=== PATIENT | female | born 1990 | race Caucasian/White ===

== ENCOUNTER 2018-11-17 12:18 | Emergency (ER) | payer BC ==
[~2018-11-17] VITALS: Ht 170.2 cm; Wt 84.8 kg
[~2018-11-17 12:18] MED LIST: AMOX500 PO; CYCL10 PO; DIVA500EC; IBUP800 PO; LAMO100 PO; LAMO50 PO; Lotrimin Ultra12 GM TP; MULVITMINE PO; OXYACE5T PO; RXCYCL10 PO; ZONI100
[2018-11-17 13:05] LABS: BASOPHILS ABSOLUTE AUTO 0.04 K/mm3 (0.00-0.23); BASOPHILS PERCENT AUTO 1 % (0-2); EOSINOPHILS ABSOLUTE AUTO 0.06 K/mm3 (0.00-0.68); EOSINOPHILS PERCENT AUTO 1 % (0-6); Hematocrit 40.1 % (33.0-51.0); Hemoglobin 13.6 g/dL (11.5-16.0); IMMATURE GRAN ABSOLUTE AUTO 0.03 K/mm3 (0.00-0.10); IMMATURE GRAN PERCENT AUTO 1 % (0-1); LYMPHOCYTES ABSOLUTE AUTO 2.33 K/mm3 (0.84-5.20); LYMPHOCYTES PERCENT AUTO 36 % (21-46); MONOCYTES ABSOLUTE AUTO 0.46 K/mm3 (0.16-1.47); MONOCYTES PERCENT AUTO 7 % (4-13); Mean Corpuscular HGB 31.6 pg (26.0-34.0); Mean Corpuscular HGB Conc 33.9 g/dL (31.5-36.5); Mean Corpuscular Volume 93 fL (80-100); Mean Platelet Volume 8.7 fL (9.1-12.4); NEUTROPHILS ABSOLUTE AUTO 3.53 K/mm3 (1.96-9.15); NEUTROPHILS PERCENT AUTO 55 % (41-73); Platelet Count 291 K/mm3 (150-400); RDW Coefficient Variation 12.1 % (11.7-14.2); RDW Standard Deviation 41.7 fL (35.1-46.3); Red Blood Cell Count 4.31 M/mm3 (3.80-5.20); White Blood Cell Count 6.45 K/mm3 (4.00-11.30)
[2018-11-17 13:24] LABS: Alanine Aminotransfer (ALT/SGP 28 U/L (12-78); Albumin, Blood 3.7 g/dL (3.4-5.0); Albumin/Globulin Ratio 1.1 (0.8-1.8); Alk Phos 74 U/L (50-136); Anion Gap 5 mmol/L (6-16); Aspartate Aminotrans (AST/SGOT 12 U/L (12-37); Bilirubin, Total 0.3 mg/dL (0.1-1.0); Blood Urea Nitrogen 12 mg/dL (8-24); Bun/Creatinine Ratio 14.8 (12.0-20.0); CO2, Blood 31 mmol/L (21-32); Calcium, Blood 8.5 mg/dL (8.5-10.1); Chloride, Blood 104 mmol/L (98-108); Creatinine, Blood 0.81 mg/dL (0.40-1.00); Globulin, Blood 3.5 g/dL (2.2-4.0); Glomerular Filtration Rate >60 (60-); Glucose, Blood 92 mg/dL (70-99); Potassium, Blood 3.8 mmol/L (3.5-5.5); Sodium, Blood 140 mmol/L (136-145); Total Protein, Blood 7.2 g/dL (6.4-8.2)
== END 2018-11-17 15:10 | disposition home or self-care (01) ==
LOC: ER 12:18
PROVIDERS: Physician Assistant
DX: N92.0 Excessive and frequent menstruation with regular cycle (principal); Z79.899 Other long term (current) drug therapy
CPT/HCPCS: 36415; 76830; 76856; 80053; 81025; 84702; 85025; 99284-25

== ENCOUNTER 2019-02-01 17:08 | Emergency (ER) | payer BC ==
[~2019-02-01] VITALS: Ht 170.2 cm; Wt 81.7 kg
[2019-02-01 18:15] LABS: BASOPHILS ABSOLUTE AUTO 0.04 K/mm3 (0.00-0.23); BASOPHILS PERCENT AUTO 1 % (0-2); EOSINOPHILS ABSOLUTE AUTO 0.05 K/mm3 (0.00-0.68); EOSINOPHILS PERCENT AUTO 1 % (0-6); Hematocrit 39.3 % (33.0-51.0); Hemoglobin 13.2 g/dL (11.5-16.0); IMMATURE GRAN ABSOLUTE AUTO 0.02 K/mm3 (0.00-0.10); IMMATURE GRAN PERCENT AUTO 0 % (0-1); LYMPHOCYTES ABSOLUTE AUTO 2.01 K/mm3 (0.84-5.20); LYMPHOCYTES PERCENT AUTO 34 % (21-46); MONOCYTES ABSOLUTE AUTO 0.52 K/mm3 (0.16-1.47); MONOCYTES PERCENT AUTO 9 % (4-13); Mean Corpuscular HGB 31.7 pg (26.0-34.0); Mean Corpuscular HGB Conc 33.6 g/dL (31.5-36.5); Mean Corpuscular Volume 94 fL (80-100); Mean Platelet Volume 9.2 fL (9.1-12.4); NEUTROPHILS ABSOLUTE AUTO 3.23 K/mm3 (1.96-9.15); NEUTROPHILS PERCENT AUTO 55 % (41-73); Platelet Count 310 K/mm3 (150-400); RDW Coefficient Variation 12.5 % (11.7-14.2); RDW Standard Deviation 43.2 fL (35.1-46.3); Red Blood Cell Count 4.17 M/mm3 (3.80-5.20); White Blood Cell Count 5.87 K/mm3 (4.00-11.30)
[2019-02-01 18:37] LABS: Alanine Aminotransfer (ALT/SGP 30 U/L (12-78); Albumin/Globulin Ratio 1.1 (0.8-1.8); Alk Phos 79 U/L (50-136); Anion Gap 6 mmol/L (6-16); Aspartate Aminotrans (AST/SGOT 12 U/L (12-37); Bilirubin, Total 0.2 mg/dL (0.1-1.0); Blood Urea Nitrogen 9 mg/dL (8-24); Bun/Creatinine Ratio 13.8 (12.0-20.0); CO2, Blood 27 mmol/L (21-32); Calcium, Blood 9.2 mg/dL (8.5-10.1); Chloride, Blood 105 mmol/L (98-108); Creatinine, Blood 0.65 mg/dL (0.40-1.00); Globulin, Blood 3.5 g/dL (2.2-4.0); Glomerular Filtration Rate >60 (60-); Glucose, Blood 88 mg/dL (70-99); Potassium, Blood 3.3 mmol/L (3.5-5.5); Sodium, Blood 138 mmol/L (136-145); Total Protein, Blood 7.5 g/dL (6.4-8.2)
[2019-02-01 19:10] LABS: Beta HCG, Quantitative, Serum 1073 mIU/mL (0-3)
[2019-02-01] MEDS ORDERED: LAMO100 PO (19:15)
== END 2019-02-01 20:02 | disposition home or self-care (01) ==
LOC: ER 17:08
PROVIDERS: Physician Assistant
DX: O20.0 Threatened abortion (principal); Z3A.01 Less than 8 weeks gestation of pregnancy
CPT/HCPCS: 36415; 76801; 76817; 80053; 84702; 85025; 86900; 86901; 99284-25

== ENCOUNTER 2019-08-31 12:18 | Inpatient (IN) | payer BC, OTHER ==
[~2019-08-31] VITALS: Ht 170.2 cm; Wt 114.7 kg
[2019-08-31 13:08] LABS: BASOPHILS ABSOLUTE AUTO 0.03 K/mm3 (0.00-0.23); BASOPHILS PERCENT AUTO 0 % (0-2); EOSINOPHILS ABSOLUTE AUTO 0.05 K/mm3 (0.00-0.68); EOSINOPHILS PERCENT AUTO 1 % (0-6); Hematocrit 35.6 % (33.0-51.0); Hemoglobin 12.1 g/dL (11.5-16.0); IMMATURE GRAN ABSOLUTE AUTO 0.06 K/mm3 (0.00-0.10); IMMATURE GRAN PERCENT AUTO 1 % (0-1); LYMPHOCYTES ABSOLUTE AUTO 1.61 K/mm3 (0.84-5.20); LYMPHOCYTES PERCENT AUTO 20 % (21-46); MONOCYTES ABSOLUTE AUTO 0.56 K/mm3 (0.16-1.47); MONOCYTES PERCENT AUTO 7 % (4-13); Mean Corpuscular HGB 33.4 pg (26.0-34.0); Mean Corpuscular Volume 98 fL (80-100); Mean Platelet Volume 10.1 fL (9.1-12.4); NEUTROPHILS ABSOLUTE AUTO 5.92 K/mm3 (1.96-9.15); NEUTROPHILS PERCENT AUTO 72 % (41-73); Platelet Count 209 K/mm3 (150-400); RDW Coefficient Variation 13.4 % (11.7-14.2); RDW Standard Deviation 48.3 fL (35.1-46.3); Red Blood Cell Count 3.62 M/mm3 (3.80-5.20); White Blood Cell Count 8.23 K/mm3 (4.00-11.30)
[2019-08-31 13:26] LABS: Alanine Aminotransfer (ALT/SGP 22 U/L (12-78); Albumin, Blood 2.6 g/dL (3.4-5.0); Albumin/Globulin Ratio 0.7 (0.8-1.8); Alk Phos 231 U/L (50-136); Anion Gap 6 mmol/L (6-16); Aspartate Aminotrans (AST/SGOT 18 U/L (12-37); Bilirubin, Total 0.2 mg/dL (0.1-1.0); Blood Urea Nitrogen 8 mg/dL (8-24); Bun/Creatinine Ratio 11.6 (12.0-20.0); CO2, Blood 25 mmol/L (21-32); Calcium, Blood 8.7 mg/dL (8.5-10.1); Chloride, Blood 107 mmol/L (98-108); Creatinine, Blood 0.69 mg/dL (0.40-1.00); Globulin, Blood 3.6 g/dL (2.2-4.0); Glomerular Filtration Rate >60 (60-); Glucose, Blood 126 mg/dL (70-99); Potassium, Blood 4.1 mmol/L (3.5-5.5); Sodium, Blood 138 mmol/L (136-145); Total Protein, Blood 6.2 g/dL (6.4-8.2)
[2019-08-31] MEDS ORDERED: EXPECTA PRENAT1 EACH (13:53)
[2019-08-31] MEDS ORDERED: LAMICTAL XR200 MG (13:53)
[2019-08-31 15:38] LABS: PCO2 Cord - Arterial 59.8 mmHg (40-50); PO2 Cord - Arterial < 13 mmHg (16-20); pH Cord - Arterial 7.12 (7.28-7.35)
[2019-08-31 15:39] LABS: PO2 Cord - Venous 19.4 mmHg (28-32); pH Umbilical Cord - Venous 7.18 (7.26-7.35)
--- NOTE | 2019-08-31 15:45 | NUR ---
08/31/19 1545 Kim Solorzano 1513 DELIVERY MALE AT 35 WEEKS WEIGHT 6# 4OZ, NB TAKEN OVER TO [facility] FOR EVALUALTION
--- NOTE | 2019-08-31 16:20 | NUR ---
PT TO PACU FROM OR. CLEAN LINENS UNDER PT, ANNY CARE DONE. FUNDAL MASSAGE DONE, FIRM AT UMBILICUS, LIGHT LOCHIA.
[2019-09-01 06:08] LABS: BASOPHILS ABSOLUTE AUTO 0.03 K/mm3 (0.00-0.23); BASOPHILS PERCENT AUTO 0 % (0-2); EOSINOPHILS ABSOLUTE AUTO 0.09 K/mm3 (0.00-0.68); EOSINOPHILS PERCENT AUTO 1 % (0-6); Hematocrit 34.4 % (33.0-51.0); Hemoglobin 11.4 g/dL (11.5-16.0); IMMATURE GRAN ABSOLUTE AUTO 0.05 K/mm3 (0.00-0.10); IMMATURE GRAN PERCENT AUTO 1 % (0-1); LYMPHOCYTES ABSOLUTE AUTO 2.21 K/mm3 (0.84-5.20); LYMPHOCYTES PERCENT AUTO 21 % (21-46); MONOCYTES ABSOLUTE AUTO 0.71 K/mm3 (0.16-1.47); MONOCYTES PERCENT AUTO 7 % (4-13); Mean Corpuscular HGB 33.8 pg (26.0-34.0); Mean Corpuscular HGB Conc 33.1 g/dL (31.5-36.5); Mean Platelet Volume 10.4 fL (9.1-12.4); NEUTROPHILS ABSOLUTE AUTO 7.57 K/mm3 (1.96-9.15); NEUTROPHILS PERCENT AUTO 71 % (41-73); Platelet Count 221 K/mm3 (150-400); RDW Coefficient Variation 13.7 % (11.7-14.2); RDW Standard Deviation 50.3 fL (35.1-46.3); Red Blood Cell Count 3.37 M/mm3 (3.80-5.20); White Blood Cell Count 10.66 K/mm3 (4.00-11.30)
[2019-09-01 06:09] LABS: Mean Corpuscular Volume 102 fL (80-100)
--- NOTE | 2019-09-01 10:40 | NUR ---
AMBULATE TO ICE MACHINE AND BACK. TOLERATED WELL
--- NOTE | 2019-09-01 12:03 | NUR ---
PT GOING TO TRY AND SLEEP. WANTS NO INTERRUPTIONS TILL 1400
[2019-09-01] MEDS ORDERED: IBUP800 PO (13:33)
[2019-09-01] MEDS ORDERED: DOCU100 PO (13:33)
[2019-09-01] MEDS ORDERED: Percocet 5-3251 EACH PO (13:34)
--- NOTE | 2019-09-01 18:31 | NUR ---
AMBULATE TO CAFETERIA FOR DINNER
--- NOTE | 2019-09-02 10:59 | NUR ---
PT D/C HOME IN WHEELCHAIR TO GO TO [facility] AND SEE HER NB. PT VERY ANXIOUS TO LEAVE.
== END 2019-09-02 10:55 | disposition home or self-care (01) | DRG 784 ==
LOC: OBS 12:18 → BC 12:20 → OBS 13:38 → BC 13:39
PROVIDERS: Obstetrics & Gynecology; ADMIT Nurse Practitioner Obstetrics & Gynecology
PROC: 10D00Z1 Extraction of Products of Conception, Low, Open Approach (ICD-10-PCS; principal; 2019-08-31 14:30)
PROC: 0UT70ZZ Resection of Bilateral Fallopian Tubes, Open Approach (ICD-10-PCS; 2019-08-31 14:30)
DX: O14.94 Unspecified pre-eclampsia, complicating childbirth (principal); O99.354 Diseases of the nervous system complicating childbirth; Z3A.35 35 weeks gestation of pregnancy; Z37.0 Single live birth; O76 Abnormality in fetal heart rate and rhythm complicating labor and delivery; G40.909 Epilepsy, unspecified, not intractable, without status epilepticus; O69.89X0 Labor and delivery complicated by other cord complications, not applicable or unspecified
CPT/HCPCS: 36415; 59025; 76819; 80053; 82803; 85025; 86850; 86900; 86901; 88302; J0690; J1885; J2250; J2370; J2405; J2590; J2765; J3010; J7120

== ENCOUNTER 2021-02-15 01:13 | Emergency (ER) | payer BC, OTHER ==
[~2021-02-15] VITALS: Ht 170.2 cm; Wt 99.8 kg
[~2021-02-15 01:13] MED LIST changes: +DOCU100 PO; +EXPECTA PRENAT1 EACH; +LAMICTAL XR200 MG; +LAMICTAL200 MG PO; +Percocet 5-3251 EACH PO
[2021-02-15 01:28] LABS: Source, Urine Clean Catch
[2021-02-15 01:30] LABS: Bilirubin, Urine Neg (Neg); Blood, Urine 5+ (Neg); Glucose Qualitative, Urine Neg (Neg); Ketones, Urine Neg (Neg); Leukocyte Esterase, Urine 2+ (Neg); Nitrite, Urine Neg (Neg); Protein, Urine 2+ (Neg); Urobilinogen, Urine NORM (Normal)
[2021-02-15 01:39] LABS: Color, Urine Yellow (P-Yellow)
[2021-02-15 01:40] LABS: Amorphous Mod (0-Heavy); Appearance, Urine Cloudy (Clear); Bacteria Many /hpf; Red Blood Cells, Urine TNTC /hpf (0-2); Squamous Epithelial Cells Few /hpf (Few); White Blood Cells, Urine 50-100 /hpf (0-5)
[2021-02-15 02:03] LABS: BASOPHILS ABSOLUTE AUTO 0.04 K/mm3 (0.00-0.23); BASOPHILS PERCENT AUTO 0 % (0-2); EOSINOPHILS ABSOLUTE AUTO 0.08 K/mm3 (0.00-0.68); EOSINOPHILS PERCENT AUTO 1 % (0-6); Hematocrit 38.7 % (33.0-51.0); Hemoglobin 13.1 g/dL (11.5-16.0); IMMATURE GRAN ABSOLUTE AUTO 0.06 K/mm3 (0.00-0.10); IMMATURE GRAN PERCENT AUTO 1 % (0-1); LYMPHOCYTES ABSOLUTE AUTO 2.94 K/mm3 (0.84-5.20); LYMPHOCYTES PERCENT AUTO 31 % (21-46); MONOCYTES ABSOLUTE AUTO 0.73 K/mm3 (0.16-1.47); MONOCYTES PERCENT AUTO 8 % (4-13); Mean Corpuscular HGB 30.3 pg (26.0-34.0); Mean Corpuscular HGB Conc 33.9 g/dL (31.5-36.5); Mean Corpuscular Volume 89 fL (80-100); Mean Platelet Volume 9.2 fL (9.1-12.4); NEUTROPHILS ABSOLUTE AUTO 5.76 K/mm3 (1.96-9.15); NEUTROPHILS PERCENT AUTO 60 % (41-73); Platelet Count 276 K/mm3 (150-400); RDW Coefficient Variation 13.2 % (11.7-14.2); RDW Standard Deviation 43.6 fL (35.1-46.3); Red Blood Cell Count 4.33 M/mm3 (3.80-5.20); White Blood Cell Count 9.61 K/mm3 (4.00-11.30)
[2021-02-15 02:07] LABS: Alanine Aminotransfer (ALT/SGP 21 U/L (12-78); Albumin, Blood 3.5 g/dL (3.4-5.0); Albumin/Globulin Ratio 1.1 (0.8-1.8); Alk Phos 79 U/L (50-136); Anion Gap 6 mmol/L (6-16); Aspartate Aminotrans (AST/SGOT 12 U/L (12-37); Bilirubin, Total 0.2 mg/dL (0.1-1.0); Blood Urea Nitrogen 9 mg/dL (8-24); Bun/Creatinine Ratio 11.3 (12.0-20.0); CO2, Blood 25 mmol/L (21-32); Calcium, Blood 8.8 mg/dL (8.5-10.1); Chloride, Blood 109 mmol/L (98-108); Globulin, Blood 3.3 g/dL (2.2-4.0); Glomerular Filtration Rate >60 (60-); Glucose, Blood 111 mg/dL (70-99); Potassium, Blood 3.7 mmol/L (3.5-5.5); Sodium, Blood 140 mmol/L (136-145); Total Protein, Blood 6.8 g/dL (6.4-8.2)
[2021-02-15] MEDS ORDERED: Flomax0.4 MG PO (02:28)
[2021-02-15] MEDS ORDERED: IBU600 MG PO (02:28)
== END 2021-02-15 02:47 | disposition home or self-care (01) ==
LOC: ER 01:13
PROVIDERS: Emergency Medicine
DX: N23 Unspecified renal colic (principal); Z88.8 Allergy status to other drugs, medicaments and biological substances; Z79.899 Other long term (current) drug therapy
CPT/HCPCS: 36415; 76770; 80053; 81001; 81025; 85025; 87086; 96372-59; 96374; 99284-25; J0696; J1885

== ENCOUNTER 2024-03-19 14:49 | Emergency (ER) | payer OTHER ==
[~2024-03-19] VITALS: Ht 170.2 cm; Wt 99.8 kg
[~2024-03-19 14:49] MED LIST changes: +Flomax0.4 MG PO; +IBU600 MG PO
[2024-03-19 14:53] VITALS: BP 151/108
== END 2024-03-19 15:34 | disposition home or self-care (01) ==
LOC: ER 14:49
DX: S60.511A Abrasion of right hand, initial encounter (principal); V86.96XA Unspecified occupant of dirt bike or motor/cross bike injured in nontraffic accident, initial encounter; Z88.8 Allergy status to other drugs, medicaments and biological substances; Z79.899 Other long term (current) drug therapy
CPT/HCPCS: 73130; 99283-25